=== PATIENT | female | born 1960 | race Caucasian/White ===

== ENCOUNTER 2017-06-06 11:05 | Emergency (ER) | payer MEDICARE, MEDICAID ==
[~2017-06-06] VITALS: Ht 180.3 cm; Wt 93.8 kg
[2017-06-06 12:26] LABS: URINE BLOOD DIPSTICK LARGE (NEGATIVE); URINE GLUCOSE - DIPSTICK NEGATIVE (NEGATIVE); URINE KETONE NEGATIVE (NEGATIVE); URINE LEUK ESTERASE NEGATIVE (NEGATIVE); URINE PROTEIN - DIPSTICK 100 mg/dL (NEG-TRACE); URINE UROBILINOGEN - DIPSTICK 0.2 E.U./dL (0.2)
[2017-06-06 12:28] LABS: URINE BACTERIA FEW hpf; URINE BILIRUBIN - DIPSTICK SMALL (NEGATIVE); URINE CLARITY BLOODY; URINE COLOR BROWN; URINE NITRITE - DIPSTICK POSITIVE (Negative); URINE RBC TNTC RBC/hpf (0-5)
[2017-06-06 13:59] LABS: HEMATOCRIT 40.3 % (37.0-47.0); HEMOGLOBIN 13.3 g/dl (12.0-16.0); IMMATURE GRANULOCYTES 0.3 % (0.0-1.0); MEAN CELL VOLUME 92.2 fL CALC (80.0-100.0); MEAN CORPUSCULAR HGB 30.4 pG CALC (26.0-32.0); NEUT# 3.27 thou/uL (2.00-7.15); RED BLOOD COUNT 4.37 mill/uL (4.20-5.60)
[2017-06-06 14:15] LABS: ALBUMIN 3.4 g/dL (3.2-5.0); ALKALINE PHOSPHATASE 86 u/l (38-126); ANION GAP 14 (6-22 (CALC)); BILIRUBIN, TOTAL 0.7 mg/dL (0.0-1.4); BUN 21 mg/dL (7-17); BUN/CREATININE RATIO 20 (12-20 (CALC)); CARBON DIOXIDE 26 mmol/l (22-30); CHLORIDE 110 mmol/l (95-108); GFR 57 ML/MIN (>=60 (CALC)); GFR FOR AFR.AMER. > 60 ML/MIN (>=60 (CALC)); LIPASE 114 u/l (23-300); POTASSIUM 4.2 mmol/l (3.5-5.1); SGOT/AST 17 u/l (14-36); SGPT/ALT 23 u/l (9-52); SODIUM 146 mmol/l (137-146); TOTAL PROTEIN 6.4 g/dL (6.3-8.2)
[2017-06-06] MEDS ORDERED: OMNICEF300 M1 PO (14:58)
[2017-06-06] MEDS ORDERED: ZPAK PO (14:58)
[2017-06-06 15:12] VITALS: BP 120/60
[2017-06-06] MEDS ORDERED: MOTRIN400 MG PO (15:21)
== END 2017-06-06 15:18 | disposition home or self-care (01) ==
LOC: ED 11:05
PROVIDERS: Family Medicine
DX: N39.0 Urinary tract infection, site not specified (principal); J06.9 Acute upper respiratory infection, unspecified; I71.4 Abdominal aortic aneurysm, without rupture; I12.9 Hypertensive chronic kidney disease with stage 1 through stage 4 chronic kidney disease, or unspecified chronic kidney disease; N18.3 Chronic kidney disease, stage 3 (moderate); I25.2 Old myocardial infarction; J43.9 Emphysema, unspecified; F41.9 Anxiety disorder, unspecified; M06.9 Rheumatoid arthritis, unspecified

== ENCOUNTER 2017-11-26 19:43 | Observation (INO) | payer MEDICARE, MEDICAID ==
[~2017-11-26] VITALS: Ht 180.3 cm; Wt 94.0 kg
[~2017-11-26 19:43] MED LIST: MOTRIN400 MG PO; OMNICEF300 M1 PO; ZPAK PO
[2017-11-26] MEDS ORDERED: ALPRAZOLAM XR0.5 MG PO (20:14)
[2017-11-26] MEDS ORDERED: EQ ASPIRIN ADUL81 MG PO (20:16)
[2017-11-26] MEDS ORDERED: ATORVASTATIN CA80 MG PO (20:17)
[2017-11-26] MEDS ORDERED: CALCIUM + D3 601 TAB PO (20:18)
[2017-11-26] MEDS ORDERED: CARVEDILOL3.125 MG PO (20:19)
[2017-11-26] MEDS ORDERED: CLONIDINE0.1 MG PO (20:21)
[2017-11-26] MEDS ORDERED: CLOPIDOGREL75 MG PO (20:22)
[2017-11-26] MEDS ORDERED: COMBIVENT RESPIMAT IN (20:23)
[2017-11-26] MEDS ORDERED: ESCITALOPRAM OX10 MG PO (20:23)
[2017-11-26] MEDS ORDERED: FUROSEMIDE40 MG PO (20:24)
[2017-11-26] MEDS ORDERED: ISOSORB MONO60 M1 PO (20:25)
[2017-11-26] MEDS ORDERED: LEVOTHYROXIN50 MCG PO (20:25)
[2017-11-26] MEDS ORDERED: XARELTO20 MG PO (20:26)
[2017-11-26] MEDS ORDERED: ZESTRIL5 M1 PO (20:26)
[2017-11-26 20:38] LABS: HEMATOCRIT 44.4 % (37.0-47.0); HEMOGLOBIN 14.6 g/dl (12.0-16.0); IMMATURE GRANULOCYTES 0.3 % (0.0-5.0); MEAN CELL VOLUME 88.6 fL CALC (80.0-100.0); MEAN CORPUSCULAR HGB 29.1 pG CALC (26.0-32.0); MEAN CORPUSCULAR HGB CONC 32.9 g/L CALC (32.0-36.0); NEUT# 4.42 thou/uL (2.00-7.15); RED BLOOD COUNT 5.01 mill/uL (4.20-5.60); RED CELL DISTRI WIDTH 16.8 % (11.5-15.5)
[2017-11-26 20:47] LABS: ACT PARTIAL THROMBO TIME 33.2 SECONDS (20.0-32.5); INTERNATIONAL NORMALIZED RATIO 1.3 RATIO (0.7-1.3); PROTHROMBIN TIME 15.1 SECONDS (9.0-12.5)
[2017-11-26 20:48] LABS: ALBUMIN 4.1 g/dL (3.2-5.0); ALKALINE PHOSPHATASE 89 u/l (38-126); ANION GAP 14 (6-22 (CALC)); BILIRUBIN, TOTAL 0.8 mg/dL (0.0-1.4); BUN 29 mg/dL (7-17); BUN/CREATININE RATIO 21 (12-20 (CALC)); CARBON DIOXIDE 28 mmol/l (22-30); CHLORIDE 106 mmol/l (95-108); CREATININE 1.4 mg/dL (0.5-1.0); GFR 39 ML/MIN (>=60 (CALC)); GFR FOR AFR.AMER. 47 ML/MIN (>=60 (CALC)); POTASSIUM 3.8 mmol/l (3.5-5.1); SGOT/AST 22 u/l (14-36); SGPT/ALT 26 u/l (9-52); SODIUM 144 mmol/l (137-146); TOTAL PROTEIN 7.6 g/dL (6.3-8.2)
[2017-11-26 20:57] LABS: MYOGLOBIN 142 ng/mL (0 - 62)
[2017-11-26 22:42] VITALS: BP 137/82
[2017-11-27 04:43] VITALS: BP 95/61
[2017-11-27 05:47] LABS: URINE BILIRUBIN - DIPSTICK NEGATIVE (NEGATIVE); URINE BLOOD DIPSTICK SMALL (NEGATIVE); URINE COLOR YELLOW; URINE GLUCOSE - DIPSTICK NEGATIVE (NEGATIVE); URINE KETONE NEGATIVE (NEGATIVE); URINE LEUK ESTERASE NEGATIVE (NEGATIVE); URINE NITRITE - DIPSTICK NEGATIVE (Negative); URINE PROTEIN - DIPSTICK NEGATIVE (NEG-TRACE); URINE UROBILINOGEN - DIPSTICK 0.2 E.U./dL (0.2)
[2017-11-27 06:00] LABS: URINE CLARITY CLEAR
[2017-11-27 06:11] LABS: URINE BACTERIA FEW hpf; URINE SQUAMOUS EPITHELIAL CELL FEW EPI/hpf (0-FEW); URINE WBC 0-2 WBC/hpf (0-5)
[2017-11-27 07:10] VITALS: BP 101/56
[2017-11-27 12:22] VITALS: BP 116/68
[2017-11-27 15:04] LABS: ALBUMIN 3.7 g/dL (3.2-5.0); BILIRUBIN, TOTAL 0.9 mg/dL (0.0-1.4); CREATININE 1.4 mg/dL (0.5-1.0); TOTAL PROTEIN 6.9 g/dL (6.3-8.2)
[2017-11-27 16:02] VITALS: BP 119/72
== END 2017-11-27 16:26 | disposition home or self-care (01) ==
LOC: ED 19:43 → ED-I 21:40 → ED 22:01 → MS2 22:03
PROVIDERS: Emergency Medicine; ADMIT General Practice; ATTEND General Practice
DX: R07.9 Chest pain, unspecified (principal); I25.10 Atherosclerotic heart disease of native coronary artery without angina pectoris; I71.4 Abdominal aortic aneurysm, without rupture; I15.0 Renovascular hypertension; N18.3 Chronic kidney disease, stage 3 (moderate); J43.9 Emphysema, unspecified; J45.909 Unspecified asthma, uncomplicated; F41.9 Anxiety disorder, unspecified; M06.9 Rheumatoid arthritis, unspecified; F17.210 Nicotine dependence, cigarettes, uncomplicated; I25.2 Old myocardial infarction; Z95.1 Presence of aortocoronary bypass graft; Z95.5 Presence of coronary angioplasty implant and graft; Z79.82 Long term (current) use of aspirin; Z95.820 Peripheral vascular angioplasty status with implants and grafts

== ENCOUNTER → 2018-05-26 | Outpatient (REF) | payer MEDICARE, MEDICAID ==
[~2018-05-26] MED LIST changes: +ALPRAZOLAM XR0.5 MG PO; +ATORVASTATIN CA80 MG PO; +CALCIUM + D3 601 TAB PO; +CARVEDILOL3.125 MG PO; +CLONIDINE0.1 MG PO; +CLOPIDOGREL75 MG PO; +COMBIVENT RESPIMAT IN; +EQ ASPIRIN ADUL81 MG PO; +ESCITALOPRAM OX10 MG PO; +EZETIMIBE10 MG; +FUROSEMIDE40 MG PO; +ISOSORB MONO60 M1 PO; +LEVOTHYROXIN50 MCG PO; +XARELTO10 MG PO; +XARELTO20 MG PO; +ZESTRIL5 M1 PO
[2018-05-26 10:13] LABS: HEMATOCRIT 45.9 % (37.0-47.0); HEMOGLOBIN 14.6 g/dl (12.0-16.0); MEAN CELL VOLUME 94.8 fL CALC (80.0-100.0); MEAN CORPUSCULAR HGB 30.2 pG CALC (26.0-32.0); MEAN CORPUSCULAR HGB CONC 31.8 g/L CALC (32.0-36.0); RED BLOOD COUNT 4.84 mill/uL (4.20-5.60); RED CELL DISTRI WIDTH 15.9 % (11.5-15.5)
== END | disposition home or self-care (01) ==
LOC: LAB 09:35
PROVIDERS: ATTEND Nurse Practitioner Family
DX: I10 Essential (primary) hypertension (principal); N18.3 Chronic kidney disease, stage 3 (moderate)

== ENCOUNTER 2018-06-29 12:43 | Emergency (ER) | payer MEDICARE, MEDICAID ==
[~2018-06-29] VITALS: Ht 180.3 cm; Wt 100.0 kg
[~2018-06-29 12:43] MED LIST changes: -EZETIMIBE10 MG; -XARELTO10 MG PO
[2018-06-29 13:16] LABS: GFR > 60 ML/MIN (>=60 (CALC)); GFR FOR AFR.AMER. > 60 ML/MIN (>=60 (CALC))
[2018-06-29 13:19] LABS: HEMATOCRIT 50.3 % (37.0-47.0); HEMOGLOBIN 16.4 g/dl (12.0-16.0); IMMATURE GRANULOCYTES 0.3 % (0.0-5.0); MEAN CELL VOLUME 92.6 fL CALC (80.0-100.0); MEAN CORPUSCULAR HGB 30.2 pG CALC (26.0-32.0); MEAN CORPUSCULAR HGB CONC 32.6 g/L CALC (32.0-36.0); NEUT# 5.32 thou/uL (2.00-7.15); RED BLOOD COUNT 5.43 mill/uL (4.20-5.60); RED CELL DISTRI WIDTH 15.9 % (11.5-15.5)
[2018-06-29 13:31] LABS: ALBUMIN 4.3 g/dL (3.2-5.0); ALKALINE PHOSPHATASE 90 u/l (38-126); ANION GAP 14 (6-22 (CALC)); BUN 19 mg/dL (7-17); BUN/CREATININE RATIO 21 (12-20 (CALC)); CARBON DIOXIDE 23 mmol/l (22-30); CHLORIDE 108 mmol/l (95-108); CREATININE 0.9 mg/dL (0.5-1.0); GFR > 60 ML/MIN (>=60 (CALC)); GFR FOR AFR.AMER. > 60 ML/MIN (>=60 (CALC)); LIPASE 171 u/l (23-300); POTASSIUM 4.3 mmol/l (3.5-5.1); SGOT/AST 30 u/l (14-36); SODIUM 140 mmol/l (137-146); TOTAL PROTEIN 7.9 g/dL (6.3-8.2)
[2018-06-29 13:46] LABS: URINE BILIRUBIN - DIPSTICK NEGATIVE (NEGATIVE); URINE BLOOD DIPSTICK LARGE (NEGATIVE); URINE GLUCOSE - DIPSTICK NEGATIVE (NEGATIVE); URINE KETONE NEGATIVE (NEGATIVE); URINE LEUK ESTERASE NEGATIVE (NEGATIVE); URINE NITRITE - DIPSTICK NEGATIVE (Negative); URINE PROTEIN - DIPSTICK 100 mg/dL (NEG-TRACE); URINE UROBILINOGEN - DIPSTICK 0.2 E.U./dL (0.2)
[2018-06-29 13:47] LABS: URINE COLOR DK. YELLOW
[2018-06-29 13:58] LABS: URINE RBC TNTC RBC/hpf (0-5); URINE SQUAMOUS EPITHELIAL CELL FEW EPI/hpf (0-FEW)
[2018-06-29] MEDS ORDERED: XARELTO10 MG PO (14:16)
[2018-06-29] MEDS ORDERED: EZETIMIBE10 MG (14:19)
[2018-06-29 15:39] VITALS: BP 143/73
== END 2018-06-29 15:53 | disposition home or self-care (01) ==
LOC: ED 12:43
PROVIDERS: Family Medicine
DX: R31.9 Hematuria, unspecified (principal); R10.13 Epigastric pain; I71.4 Abdominal aortic aneurysm, without rupture; I15.0 Renovascular hypertension; J43.9 Emphysema, unspecified; N18.3 Chronic kidney disease, stage 3 (moderate); Z79.01 Long term (current) use of anticoagulants; Z79.02 Long term (current) use of antithrombotics/antiplatelets
CPT/HCPCS: Q9967

== ENCOUNTER 2018-08-16 16:14 | Emergency (ER) | payer MEDICARE, MEDICAID ==
[~2018-08-16] VITALS: Ht 180.3 cm; Wt 93.0 kg
[~2018-08-16 16:14] MED LIST changes: +EZETIMIBE10 MG; +XARELTO10 MG PO
[2018-08-16 16:37] LABS: IMMATURE GRANULOCYTES 0.6 % (0.0-5.0); MEAN CELL VOLUME 93.9 fL CALC (80.0-100.0); MEAN CORPUSCULAR HGB 30.2 pG CALC (26.0-32.0); MEAN CORPUSCULAR HGB CONC 32.2 g/L CALC (32.0-36.0); NEUT# 5.19 thou/uL (2.00-7.15); RED BLOOD COUNT 4.24 mill/uL (4.20-5.60); RED CELL DISTRI WIDTH 15.3 % (11.5-15.5)
[2018-08-16 16:40] LABS: HEMATOCRIT 39.8 % (37.0-47.0); HEMOGLOBIN 12.8 g/dl (12.0-16.0)
[2018-08-16 16:57] LABS: ALBUMIN 3.5 g/dL (3.2-5.0); ALKALINE PHOSPHATASE 100 u/l (38-126); BILIRUBIN, TOTAL 0.6 mg/dL (0.0-1.4); BUN 16 mg/dL (7-17); BUN/CREATININE RATIO 21 (12-20 (CALC)); CARBON DIOXIDE 25 mmol/l (22-30); CHLORIDE 103 mmol/l (95-108); CREATININE 0.8 mg/dL (0.5-1.0); GFR > 60 ML/MIN (>=60 (CALC)); GFR FOR AFR.AMER. > 60 ML/MIN (>=60 (CALC)); POTASSIUM 4.3 mmol/l (3.5-5.1); SGOT/AST 34 u/l (14-36); TOTAL PROTEIN 7.2 g/dL (6.3-8.2)
[2018-08-16 17:00] LABS: ANION GAP 12 (6-22 (CALC)); SODIUM 136 mmol/l (137-146)
[2018-08-16] MEDS ORDERED: DOXYCYCL HYC100 MG PO (18:24)
[2018-08-16 18:28] VITALS: BP 105/67
== END 2018-08-16 18:40 | disposition home or self-care (01) ==
LOC: ED 16:14
PROVIDERS: Family Medicine
DX: J18.9 Pneumonia, unspecified organism (principal); R04.2 Hemoptysis; I12.9 Hypertensive chronic kidney disease with stage 1 through stage 4 chronic kidney disease, or unspecified chronic kidney disease; N18.3 Chronic kidney disease, stage 3 (moderate); J43.9 Emphysema, unspecified; F17.200 Nicotine dependence, unspecified, uncomplicated; I25.2 Old myocardial infarction
CPT/HCPCS: Q9967

== ENCOUNTER 2019-04-09 | Emergency (ER) | payer MEDICARE, MEDICAID ==
[~2019-04-09] MED LIST changes: +ALLEGRA180 MG PO; +AMITRIPTYLIN25 MG PO; +DOXYCYCL HYC100 MG PO; +EZETIMIBE10 MG PO; +FUROSEMIDE20 MG PO
[2019-04-09] MEDS ORDERED: TRAZODONE50 MG PO (10:51)
[2019-04-09 11:49] LABS: GFR 51 ML/MIN (>=60 (CALC)); GFR FOR AFR.AMER. > 60 ML/MIN (>=60 (CALC))
[2019-04-09 12:14] LABS: IMMATURE GRANULOCYTES 0.3 % (0.0-5.0); MEAN CELL VOLUME 97.4 fL CALC (80.0-100.0); MEAN CORPUSCULAR HGB CONC 31.8 g/L CALC (32.0-36.0); NEUT# 3.72 thou/uL (2.00-7.15); RED BLOOD COUNT 4.23 mill/uL (4.20-5.60); RED CELL DISTRI WIDTH 15.7 % (11.5-15.5)
[2019-04-09 12:16] LABS: ANION GAP 14 (6-22 (CALC)); BUN 21 mg/dL (7-17); BUN/CREATININE RATIO 23 (12-20 (CALC)); CARBON DIOXIDE 24 mmol/l (22-30); CHLORIDE 106 mmol/l (95-108); CREATININE 0.9 mg/dL (0.5-1.0); GFR > 60 ML/MIN (>=60 (CALC)); GFR FOR AFR.AMER. > 60 ML/MIN (>=60 (CALC)); POTASSIUM 4.5 mmol/l (3.5-5.1); SODIUM 139 mmol/l (137-146)
[2019-04-09 12:25] LABS: HEMATOCRIT 41.2 % (37.0-47.0); HEMOGLOBIN 13.1 g/dl (12.0-16.0)
[2019-04-09 14:56] LABS: PROTHROMBIN TIME 10.6 SECONDS (9.0-12.5)
== END 2019-04-09 15:31 ==
PROVIDERS: Family Medicine
DX: I70.202 Unspecified atherosclerosis of native arteries of extremities, left leg (principal); I72.4 Aneurysm of artery of lower extremity; I71.4 Abdominal aortic aneurysm, without rupture; I12.9 Hypertensive chronic kidney disease with stage 1 through stage 4 chronic kidney disease, or unspecified chronic kidney disease; N18.3 Chronic kidney disease, stage 3 (moderate); J43.9 Emphysema, unspecified; F17.210 Nicotine dependence, cigarettes, uncomplicated; Z95.820 Peripheral vascular angioplasty status with implants and grafts; Z86.79 Personal history of other diseases of the circulatory system
CPT/HCPCS: J1644; Q9967

== ENCOUNTER 2019-04-26 | Emergency (ER) | payer MEDICARE, MEDICAID ==
[~2019-04-26] MED LIST changes: +TRAZODONE50 MG PO
[2019-04-26 20:30] LABS: HEMATOCRIT 31.9 % (37.0-47.0); IMMATURE GRANULOCYTES 0.8 % (0.0-5.0); MEAN CELL VOLUME 97.6 fL CALC (80.0-100.0); MEAN CORPUSCULAR HGB 30.6 pG CALC (26.0-32.0); MEAN CORPUSCULAR HGB CONC 31.3 g/L CALC (32.0-36.0); NEUT# 4.81 thou/uL (2.00-7.15); RED BLOOD COUNT 3.27 mill/uL (4.20-5.60); RED CELL DISTRI WIDTH 15.9 % (11.5-15.5)
[2019-04-26 20:53] LABS: PROTHROMBIN TIME 10.7 SECONDS (9.0-12.5)
[2019-04-26 21:21] LABS: ALBUMIN 3.3 g/dL (3.2-5.0); ALKALINE PHOSPHATASE 97 u/l (38-126); ANION GAP 13 (6-22 (CALC)); BILIRUBIN, TOTAL 0.4 mg/dL (0.0-1.4); BUN 25 mg/dL (7-17); BUN/CREATININE RATIO 27 (12-20 (CALC)); CARBON DIOXIDE 26 mmol/l (22-30); CHLORIDE 105 mmol/l (95-108); CREATININE 0.9 mg/dL (0.5-1.0); GFR > 60 ML/MIN (>=60 (CALC)); GFR FOR AFR.AMER. > 60 ML/MIN (>=60 (CALC)); POTASSIUM 4.4 mmol/l (3.5-5.1); SGOT/AST 28 u/l (14-36); SODIUM 140 mmol/l (137-146); TOTAL PROTEIN 6.9 g/dL (6.3-8.2)
== END 2019-04-26 23:32 | disposition short-term general hospital (02) ==
PROVIDERS: Emergency Medicine
DX: T82.898A Other specified complication of vascular prosthetic devices, implants and grafts, initial encounter (principal); I77.9 Disorder of arteries and arterioles, unspecified; I72.4 Aneurysm of artery of lower extremity; J43.9 Emphysema, unspecified; I12.9 Hypertensive chronic kidney disease with stage 1 through stage 4 chronic kidney disease, or unspecified chronic kidney disease; N18.3 Chronic kidney disease, stage 3 (moderate); I25.2 Old myocardial infarction; F17.200 Nicotine dependence, unspecified, uncomplicated; Y83.1 Surgical operation with implant of artificial internal device as the cause of abnormal reaction of the patient, or of later complication, without mention of misadventure at the time of the procedure; M79.661 Pain in right lower leg
CPT/HCPCS: J1644